=== PATIENT | male | born 1965 | race Caucasian/White ===

== ENCOUNTER 2019-07-14 18:41 | Emergency (ER) | payer MEDICAID ==
[~2019-07-14] VITALS: Ht 170.2 cm; Wt 88.5 kg
--- NOTE | ~2019-07-14 | EKG ---
[facility] [place] [address] ELECTROCARDIOGRAM REPORT Name: HIRAM WHEELER Room #: DEP [facility]#: [id number] Admission: 07/14/19 Attend Phys: Discharge: 07/14/19 Date of : 69 Report #: [id number] THIS REPORT FOR: cc: VENKATA - Pamela family physician/PCP VENKATA - Pamela family physician/PCP Eufemia Fall MD ~ THIS REPORT FOR: //name// 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
--- NOTE | ~2019-07-14 | EKG ---
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
--- NOTE | ~2019-07-14 | EKG ---
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
[2019-07-14 19:12] LABS: ABSOLUTE NEUTROPHILS 3.8 thou/uL (1.4-8.2); BASOPHILS 0.2 % (0.0-2.0); EOSINOPHILS 3.5 % (0.0-3.0); HEMOGLOBIN 14.4 gm/dL (14.0-18.0); LYMPHOCYTES 36.3 % (24.0-44.0); MCH 28.1 pg (26.0-34.0); MCHC 33.4 g/dL (28.0-37.0); PLATELET COUNT 314 thou/uL (150-400); RBC 5.12 mil/uL (4.50-6.00); RDW 14.2 % (10.5-14.5); WBC 7.7 thou/uL (4.0-11.0)
[2019-07-14 19:23] LABS: ANION GAP 11 mmol/L (7-16); BUN 19 mg/dL (7-18); CALCIUM 8.9 mg/dL (8.5-10.1); CHLORIDE 103 mmol/L (98-107); CO2 25 mmol/L (21-32); CREATININE 0.9 mg/dL (0.7-1.3); GLUCOSE 96 mg/dL (74-106); POTASSIUM 4.3 mmol/L (3.5-5.1); SODIUM 139 mmol/L (136-145)
[2019-07-14 19:32] LABS: TROPONIN-I <0.06 ng/mL (<0.06)
[2019-07-14 20:12] LABS: ALBUMIN 3.9 g/dL (3.4-5.0); DIRECT BILIRUBIN < 0.1 mg/dL (<0.1-0.2); SGOT 25 U/L (15-37); SGPT 40 U/L (30-65); TOTAL BILIRUBIN 0.2 mg/dL (<0.1-1.0); TOTAL PROTEIN 7.6 g/dL (6.4-8.2)
[2019-07-14] MEDS ORDERED: NORCO 5-325 TA1 EAC1 PO (20:29)
[2019-07-14] MEDS ORDERED: MOBIC7.5 MG PO (20:29)
[2019-07-14 20:52] VITALS: BP 133/80
== END 2019-07-14 20:45 | disposition home or self-care (01) ==
LOC: ER 18:41
PROVIDERS: Nurse Practitioner Family
DX: R07.89 Other chest pain (principal); Z87.891 Personal history of nicotine dependence